=== PATIENT | female | born 1970 | race American Indian/Alaskan Native ===

== ENCOUNTER 2019-04-18 10:15 | Emergency (ER) | payer SELFPAY ==
[2019-04-18] MEDS ORDERED: TETANUS,DIPH,PERTUSS(ACELL) VACCINE 0.5 ML SYRINGE IM ONE (11:14)
--- NOTE | 2019-04-18 11:36 | Emergency Department Report ---
ED General Adult HPI - General Chief complaint: Wound/Laceration Stated complaint: STUCK IN BUTTOCK WITH A NAIL Time Seen by Provider: 04/18/19 10:52 Source: patient Mode of arrival: Ambulatory Limitations: No Limitations - History of Present Illness Initial comments: 49-year-old man female surgery department for evaluation of the left urination. She reports actually sustained out onto screws causing a puncture wound to her buttocks. She's been peroxide and sublingual. Reports no fever, chills, sweats no chest pain or palpitations 1 tetanus shot -: days(s) (3) - Related Data Allergies Allergy/AdvReac Type Severity Reaction Status Date / Time No Known Allergies Allergy Unverified 04/18/19 10:20 ED Review of Systems ROS: Stated complaint: STUCK IN BUTTOCK WITH A NAIL Other details as noted in HPI Comment: All other systems reviewed and negative ED Past Medical Hx - Past Medical History Previous Medical History?: No - Surgical History Past Surgical History?: Yes Additional Surgical History: Left wrist. ED Physical Exam - General Limitations: No Limitations General appearance: alert, in no apparent distress - Head Head exam: Present: atraumatic, normocephalic - Eye Eye exam: Present: normal appearance, PERRL, EOMI Pupils: Present: normal accommodation - ENT ENT exam: Present: mucous membranes moist - Neck Neck exam: Present: normal inspection - Respiratory Respiratory exam: Present: normal lung sounds bilaterally. Absent: respiratory distress - Cardiovascular Cardiovascular Exam: Present: regular rate, normal rhythm. Absent: systolic murmur, diastolic murmur, rubs, gallop - GI/Abdominal GI/Abdominal exam: Present: soft, normal bowel sounds - Extremities Exam Extremities exam: Present: normal inspection - Back Exam Back exam: Present: normal inspection. Absent: CVA tenderness (R), CVA tenderness (L) - Neurological Exam Neurological exam: Present: alert, oriented X3, CN II-XII intact - Psychiatric Psychiatric exam: Present: normal affect, normal mood - Skin Skin exam: Present: warm, dry, intact, normal color. Absent: rash, cyanosis, diaphoretic, erythema, urticaria, petechiae, pallor, abrasion, ecchymosis Critical care attestation.: If time is entered above; I have spent that time in minutes in the direct care of this critically ill patient, excluding procedure time. ED Disposition Clinical Impression: Puncture wound Disposition: DC-01 TO HOME OR SELFCARE Is pt being admited?: No Does the pt Need Aspirin: No Condition: Stable Instructions: Puncture Wound (ED) Referrals: [facility] [Provider Group] - 3-5 Days
== END 2019-04-18 11:38 | disposition home or self-care (01) ==
LOC: ED 10:15
DX: S31.823A Puncture wound without foreign body of left buttock, initial encounter (principal); Z98.890 Other specified postprocedural states; W45.0XXA Nail entering through skin, initial encounter; Y93.89 Activity, other specified; Y92.89 Other specified places as the place of occurrence of the external cause; Y99.8 Other external cause status
CPT/HCPCS: 90471; 90715

== ENCOUNTER 2019-08-31 11:19 | Emergency (ER) | payer SELFPAY ==
[2019-08-31 11:31] VITALS: BP 123/82
--- NOTE | 2019-08-31 12:11 | XRay Report ---
CHEST 2 VIEWS INDICATION / CLINICAL INFORMATION: productive cough for 2 weeks. COMPARISON: None available. FINDINGS: SUPPORT DEVICES: None. HEART / MEDIASTINUM: No significant abnormality. LUNGS / PLEURA: No significant pulmonary or pleural abnormality. No pneumothorax. ADDITIONAL FINDINGS: No significant additional findings. IMPRESSION: 1. No acute findings. Signer Name: Yohannes Morin MD Signed: 08/31/2019 12:07 PM Workstation Name: [id number]
--- NOTE | 2019-08-31 12:21 | Emergency Department Report ---
- General Chief Complaint: Upper Respiratory Infection Stated Complaint: COUGHING Time Seen by Provider: 08/31/19 11:47 Source: patient Mode of arrival: Ambulatory Limitations: No Limitations - History of Present Illness Initial Comments: Patient is a 49-year-old female presents emergency room with complaints of a productive cough that began a month ago. She states that it is worse at night. She states that she has brown/yellow mucus production. She states that occasionally she feels shortness of breath after frequent coughing. She denies any nausea, vomiting, diarrhea, fever, chest pain, hemoptysis, leg swelling. She denies any recent travel, recent surgery, sick contact, hormone use. She has a past medical history of asthma and uses an inhaler. She denies any all ergies to medications. She is a current every day smoker 2 packs a week. She states her last menstrual cycle was August 10. She states that she has been using Mucinex and Delsym without much relief - Related Data Previous Rx's Medication Instructions Recorded Last Taken Type Albuterol Sulfate [Proventil Hfa] 6.7 gm IH TID PRN #1 hfa.aer.ad 08/31/19 Unknown Rx Azithromycin [Zithromax TAB] 250 mg PO QDAY 5 Days #6 tablet 08/31/19 Unknown Rx Benzonatate [Tessalon Perles] 100 mg PO Q8HR PRN #10 capsule 08/31/19 Unknown Rx predniSONE [Deltasone] 40 mg PO QDAY 5 Days #10 tab 08/31/19 Unknown Rx Allergies Allergy/AdvReac Type Severity Reaction Status Date / Time No Known Allergies Allergy Unverified 04/18/19 10:20 ED Review of Systems ROS: Stated complaint: COUGHING Other details as noted in HPI Comment: All other systems reviewed and negative ED Past Medical Hx - Past Medical History Hx Asthma: Yes - Surgical History Additional Surgical History: Left wrist. - Social History Smoking Status: Current Some Day Smoker Substance Use Type: None - Medications Home Medications: Home Medications Medication Instructions Recorded Confirmed Last Taken Type Albuterol Sulfate [Proventil Hfa] 6.7 gm IH TID PRN #1 hfa.aer.ad 08/31/19 Unknown Rx Azithromycin [Zithromax TAB] 250 mg PO QDAY 5 Days #6 tablet 08/31/19 Unknown Rx Benzonatate [Tessalon Perles] 100 mg PO Q8HR PRN #10 capsule 08/31/19 Unknown Rx predniSONE [Deltasone] 40 mg PO QDAY 5 Days #10 tab 08/31/19 Unknown Rx ED Physical Exam - General Limitations: No Limitations General appearance: alert, in no apparent distress - Head Head exam: Present: atraumatic, normocephalic - Eye Eye exam: Present: normal appearance - ENT ENT exam: Present: mucous membranes moist - Respiratory Respiratory exam: Present: normal lung sounds bilaterally. Absent: respiratory distress, wheezes, rales, rhonchi, stridor, chest wall tenderness, accessory muscle use, decreased breath sounds, prolonged expiratory - Cardiovascular Cardiovascular Exam: Present: regular rate, normal rhythm, normal heart sounds. Absent: systolic murmur, diastolic murmur, rubs, gallop - Neurological Exam Neurological exam: Present: alert, oriented X3 - Psychiatric Psychiatric exam: Present: normal affect, normal mood - Skin Skin exam: Present: warm, dry, intact ED Course Vital Signs 08/31/19 08/31/19 11:29 11:31 Temperature 98.1 F Pulse Rate 85 Respiratory 16 Rate Blood Pressure 123/82 O2 Sat by Pulse 99 Oximetry ED Medical Decision Making - Radiology Data Radiology results: report reviewed CHEST 2 VIEWS INDICATION / CLINICAL INFORMATION: productive cough for 2 weeks. COMPARISON: None available. FINDINGS: SUPPORT DEVICES: None. HEART / MEDIASTINUM: No significant abnormality. LUNGS / PLEURA: No significant pulmonary or pleural abnormality. No pneumothorax. ADDITIONAL FINDINGS: No significant additional findings. IMPRESSION: 1. No acute findings. Signer Name: Yohannes Morin MD Signed: 08/31/2019 12:07 PM Workstation Name: [id number] Transcribed By: JOSÉ MIGUEL Dictated By: Yohannes Morin MD Electronically Authenticated By: Yohannes Morin MD Signed Date/Time: 08/31/19 1207 DD/ 1206 TD/TT: - Medical Decision Making Patient is a 49-year-old female presents emergency room with complaints of a productive cough that began a month ago. She states that it is worse at night. She states that she has brown/yellow mucus production. She states that oc casionally she feels shortness of breath after frequent coughing. She denies any nausea, vomiting, diarrhea, fever, chest pain, hemoptysis, leg swelling. She denies any recent travel, recent surgery, sick contact, hormone use. She has a past medical history of asthma and uses an inhaler. She denies any allergies to medications. She is a current every day smoker 2 packs a week. She states her last menstrual cycle was August 10. She states that she has been using Mucinex and Delsym without much relief. Vitals are normal. No abnormality on physical examination as documented in chart. CXR: 1. No acute findings. PERC criteria negative for PE. Patient does not have any COVID 19 risk factors, no recent travel, no known sick contacts, no fever, no hypoxia, no PNA on XR. given that patient is an every day smoker and has had a change in her mucus production we will treat patient for acute bronchitis with antibiotics. Patient given prescription for azithromycin, prednisone, albuterol inhaler, Tessalon Perles. Discussed smoking cessation with patient. advised pt to please take medication as prescribed. Follow-up with a primary care doctor. Return to the emergency room immediately for any new or worsening symptoms. Please stop smoking. Critical care attestation.: If time is entered above; I have spent that time in minutes in the direct care of this critically ill patient, excluding procedure time. ED Disposition Clinical Impression: Tobacco abuse Acute bronchitis Qualifiers: Bronchitis organism: unspecified organism Qualified Code(s): J20.9 - Acute bronchitis, unspecified Disposition: DC-01 TO HOME OR SELFCARE Is pt being admited?: No Does the pt Need Aspirin: No Condition: Stable Instructions: How to Stop Smoking (ED), Acute Bronchitis (ED) Additional Instructions: Please take medication as prescribed. Follow-up with a primary care doctor. Return to the emergency room immediately for any new or worsening symptoms. Please stop smoking. Prescriptions: predniSONE [Deltasone] 40 mg PO QDAY 5 Days #10 tab Albuterol Sulfate [Proventil Hfa] 6.7 gm IH TID PRN #1 hfa.aer.ad PRN Reason: shortness of breath Benzonatate [Tessalon Perles] 100 mg PO Q8HR PRN #10 capsule PRN Reason: cough Azithromycin [Zithromax TAB] 250 mg PO QDAY 5 Days #6 tablet Referrals: RODRIGO CHAVIRA MD [Staff Physician] - 3-5 Days [facility] [Outside] - 3-5 Days [facility] [Outside] - 3-5 Days [facility] [Provider Group] - 3-5 Days Forms: Work/School Release Form(ED) Time of Disposition: 12:18 Print Language: TURKISH
== END 2019-08-31 12:30 | disposition home or self-care (01) ==
LOC: ED 11:19
DX: J20.9 Acute bronchitis, unspecified (principal); F17.200 Nicotine dependence, unspecified, uncomplicated; J45.909 Unspecified asthma, uncomplicated; Z98.890 Other specified postprocedural states; Z79.2 Long term (current) use of antibiotics; Z79.899 Other long term (current) drug therapy
CPT/HCPCS: 71046

== ENCOUNTER 2020-10-20 09:32 | Emergency (ER) | payer SELFPAY ==
[2020-10-20 09:50] VITALS: BP 150/94
== END 2020-10-20 11:01 | disposition left against medical advice (07) ==
LOC: ED 09:32
DX: M25.562 Pain in left knee (principal); Z53.21 Procedure and treatment not carried out due to patient leaving prior to being seen by health care provider